=== PATIENT | female | born 1965 | race Caucasian/White ===

== ENCOUNTER 2019-07-18 18:24 | Emergency (ER) | payer OTHER ==
[~2019-07-18] VITALS: Ht 154.9 cm; Wt 80.0 kg
[2019-07-18] MEDS ORDERED: HYDROCODONE/ACETAMINOPHEN 5/325MG TABLET PO STA (19:56)
[2019-07-18 21:47] VITALS: BP 113/61
== END 2019-07-18 21:30 | disposition home or self-care (01) ==
LOC: ER 18:24
DX: M54.5 Low back pain (principal); M25.561 Pain in right knee; M25.512 Pain in left shoulder; W01.198A Fall on same level from slipping, tripping and stumbling with subsequent striking against other object, initial encounter; Y93.89 Activity, other specified; Y92.89 Other specified places as the place of occurrence of the external cause
CPT/HCPCS: 72100; 99283